=== PATIENT | male | born 1990 | race Caucasian/White ===

== ENCOUNTER 2021-02-18 22:55 | Emergency (ER) | payer OTHER ==
[~2021-02-18] VITALS: Ht 167.6 cm; Wt 87.1 kg
[2021-02-18 23:00] VITALS: BP_SYST 118
[2021-02-18] MEDS ORDERED: IPRATROPIUM/ALBUTEROL SULFATE 3 ML AMPUL.NEB (DUONEB) INH ONE (23:30)
[2021-02-18] MEDS ORDERED: guaiFENesin/DEXTROMETHORPHAN 118 ML PO ONE (23:30)
[2021-02-18] MEDS ORDERED: methylPREDNISolone SOD SUCC/PF 62.5 MG/ML VIAL IM ONE (23:30)
[2021-02-18] MEDS ORDERED: guaiFENesin/DEXTROMETHORPHAN 10 ML UDC ONE (23:34)
[2021-02-18 23:49] LABS: INFLUENZA A&B ANTIGEN SCREEN NEGATIVE FOR A & B (NEGATIVE)
[2021-02-19] MEDS ORDERED: PROMETHAZINE HCL/CODEINE 6.25-10 mg/5 mL UDC PO ONE (00:30)
[2021-02-19] MEDS ORDERED: ALBMDI INH (01:32)
[2021-02-19] MEDS ORDERED: PRED20TA PO ×3 (01:32→01:34)
[2021-02-19] MEDS ORDERED: PROM5SYR PO ×2 (01:32→01:34)
[2021-02-19] MEDS ORDERED: ZIT250 PO ×2 (02:00)
[2021-02-19 02:08] VITALS: BP_SYST 128
== END 2021-02-19 02:08 | disposition home or self-care (01) ==
LOC: SED 22:55
DX: J20.9 Acute bronchitis, unspecified (principal); Z79.899 Other long term (current) drug therapy; Z20.822 Contact with and (suspected) exposure to COVID-19
CPT/HCPCS: 71045; 86710; 87426; 94640; 96372; 99284; J2930; 36415